=== PATIENT | female | born 1975 | race Caucasian/White ===

== ENCOUNTER → 2017-12-03 08:22 | Outpatient (CLI) | payer BC, SELFPAY ==
--- NOTE | 2017-12-03 08:25 | MM_ITS ---
MM Dig screening mamm BI w/CAD CAD Screening COMPARISON: Digital mammograms with CAD 11/05/2014 and 11/19/2015 INDICATION: There is no personal or family history of breast cancer TECHNIQUE: Standard CC and MLO images were obtained. R2 CAD reviewed. FINDINGS: Prominent diffuse heterogenic fibroglandular densities are seen throughout both breasts. There is no suspicious lesion and there are no suspicious microcalcifications. IMPRESSION: Moderate diffuse breast density with no suspicious lesion seen BI-RADS Category: 1 Negative RECOMMENDED FOLLOW-UP: 1YR - 1 YEAR FOLLOW-UP (A letter has been sent to the patient regarding results of the study.)
== END ==
PROVIDERS: PCP Family Medicine; Visit Provider Family Medicine
DX: Z12.31 Encounter for screening mammogram for malignant neoplasm of breast (principal)
CPT/HCPCS: 77067

== ENCOUNTER → 2019-12-18 14:37 | Outpatient (CLI) | payer BC, SELFPAY ==
--- NOTE | 2019-12-18 14:41 | MM_ITS ---
PROCEDURE: MM DIG MAMM BI DX W/CAD Digital Breast Tomosynthesis Included CLINICAL INDICATION: TALITA BREAST LUMP, there is no personal or family history of breast cancer. COMPARISON: MG DMDBAV DIG MAMM-DX TALITA W ADD VIEWS from 11/05/2014 MG DMSB DIG MAMM-SCREEN TALITA from 11/19/2015 TECHNIQUE: Standard CC and MLO images and 3D Tomosynthesis was obtained. R2 CAD reviewed. FINDINGS: Diffuse somewhat heterogenic fibroglandular densities are seen in the central portions of both breasts. There is asymmetric glandular elements upper-outer quadrant right breast just beneath the skin marker at the site of the palpable lump. A spot compression view was obtained in MLO projection. In addition ean images confirm an asymmetric density with slight irregularity of the borders. Spot compression of the central portion left breast was obtained as well in MLO projection. There has been asymmetric glandular elements upper-outer quadrant right breast on recent mammograms dating back through 11/05/2014 though there may have been a slight interval increase in size on today's exam compared with the previous studies. There has been no significant interval change in the glandular elements of the left breast when compared to previous studies. Ultrasound was performed the same date on both breasts. There are multiple benign-appearing cyst in each breast. There is a large dominant cyst upper outer quadrant right breast corresponding in size and location to the palpable lump. It has benign features with acoustic enhancement and no definite internal echoes. Cyst aspiration could be offered to the patient if it is causing significant painful symptoms. IMPRESSION: Heterogenic breast parenchyma bilaterally with slight change in asymmetric glandular elements right breast, ultrasound examination confirms multiple benign-appearing cysts in each breast which can be followed however as mention if the dominant cyst right breast is becoming symptomatic cyst aspiration could be performed. BI-RAD Category: 2 Benign Finding(s) FOLLOW-UP: 1YR 1 Year Follow-up (A letter has been sent to the patient regarding results of the study.) Dictated by: Dr. Jeremias Stallworth MD 12/23/2019 09:30 Dr. Jeremias Stallworth MD in [place] 12/23/2019 09:30
--- NOTE | 2019-12-18 14:42 | US_ITS ---
PROCEDURE: US BREAST LT COMPLETE CLINICAL INDICATION: TALITA BREAST LUMP COMPARISON: US US BREAST RT COMPLETE from 12/18/2019 FINDINGS: There are multiple small benign-appearing cystic lesions throughout the breast less numerous and overall smaller in size and seen in the right breast. There is no suspicious solid lesion. There are couple normal appearing nodes in the axilla. IMPRESSION: Multiple small benign-appearing cystic lesions as noted and no additional follow-up is indicated. Dictated by: Dr. Jeremias Stallworth MD 12/23/2019 09:42 Dr. Jeremias Stallworth MD in [place] 12/23/2019 09:42
--- NOTE | 2019-12-18 14:42 | US_ITS ---
PROCEDURE: US BREAST RT COMPLETE CLINICAL INDICATION: TALITA BREAST LUMP COMPARISON: US BL US BREAST-LT COMPLETE W/AXILLA from 11/05/2014 FINDINGS: Benign-appearing cystic lesions are seen throughout the breast of varying sizes. The largest lesion is the 10 o'clock position at the site of the palpable lump measuring 3.0 by 3.1 x 1.4 cm. There is fairly good acoustic enhancement and no definite internal echoes. There is no suspicious solid lesions seen. There are normal appearing nodes in the axilla. IMPRESSION: Multiple benign-appearing cysts and fibrocystic type breast parenchyma, if the largest cyst is becoming symptomatic cyst aspiration could be offered. Dictated by: Dr. Jeremias Stallworth MD 12/23/2019 09:41 Dr. Jeremias Stallworth MD in [place] 12/23/2019 09:41
== END ==
PROVIDERS: PCP Family Medicine; Visit Provider Physician Assistant
DX: N63.10 Unspecified lump in the right breast, unspecified quadrant (principal); N63.20 Unspecified lump in the left breast, unspecified quadrant
CPT/HCPCS: 76641; 77062; 77066; G0279

== ENCOUNTER → 2021-01-14 09:38 | Outpatient (CLI) | payer BC, SELFPAY ==
--- NOTE | 2021-01-14 09:41 | US_ITS ---
PROCEDURE: US ABDOMEN LIMITED CLINICAL INDICATION: RUQ PAIN COMPARISON: No exams were available for comparison FINDINGS: PANCREAS: Unremarkable. No obvious mass or abnormal fluid collection. No ductal dilatation LIVER: No focal liver lesions demonstrated. Homogeneous echogenicity. No intrahepatic biliary ductal dilatation evident. There is appropriate direction of blood flow within a non dilated portal vein RIGHT KIDNEY: Unremarkable. Normal size and echogenicity. No hydronephrosis GALLBLADDER: No gallstones, gallbladder wall thickening, pericholecystic fluid, or biliary dilatation. IMPRESSION: Unremarkable limited abdominal ultrasound as detailed above disc Dictated by: Placido Oliver MD 01/14/2021 13:40 Placido Oliver MD in [place] 01/14/2021 13:40
== END ==
PROVIDERS: PCP Family Medicine; Visit Provider Physician Assistant
DX: R10.11 Right upper quadrant pain (principal)
CPT/HCPCS: 76705

== ENCOUNTER → 2021-01-28 08:28 | Outpatient (CLI) | payer BC, SELFPAY ==
--- NOTE | 2021-01-28 08:30 | MM_ITS ---
PROCEDURE INFORMATION: Exam: MG Bilateral Screening 3D Mammography Exam date and time: 01/28/2021 8:30 AM Age: 45 years old Clinical indication: screening mammogram TECHNIQUE: Imaging protocol: Bilateral screening tomosynthesis and 2D mammography including computer-aided detection (CAD) when performed. COMPARISON: 1. MG MM DIG MAMM BI DX W/CAD 12/18/2019 2:49 PM 2. MG SCBI MM Dig screening mamm BI w/CAD 12/03/2017 8:47 AM 3. MG DMSB DIG MAMM-SCREEN TALITA 11/19/2015 1:13 PM 4. MG DMDBAV DIG MAMM-DX TALITA W ADD VIEWS 11/05/2014 1:51 PM FINDINGS: MAMMOGRAPHY: Breast composition: The breast tissue is heterogeneously dense, which may obscure small masses. Mass: Mass within the upper outer posterior right breast measuring 8 mm should be further assessed with spot views in CC/MLO projection. Ultrasound should also be performed. Architectural distortion: No new or suspicious architectural distortion. Calcifications: No new or suspicious calcifications are present Asymmetric density: No new or suspicious asymmetric density is present Skin thickening: None. Axillary adenopathy: None. IMPRESSION: Mass within the upper outer posterior right breast measuring 8 mm should be further assessed with spot views in CC/MLO projection. Ultrasound should also be performed. ASSESSMENT: BI-RADS category 0: Incomplete-need additional imaging evaluation
== END ==
PROVIDERS: PCP Family Medicine; Visit Provider Physician Assistant
DX: Z12.31 Encounter for screening mammogram for malignant neoplasm of breast (principal)
CPT/HCPCS: 77063; 77067

== ENCOUNTER → 2021-02-09 07:51 | Outpatient (CLI) | payer BC, SELFPAY ==
--- NOTE | 2021-02-09 07:56 | MM_ITS ---
PROCEDURE: MM DIG MAMM DX UNILAT RT CAD Digital Breast Tomosynthesis Included CLINICAL INDICATION: ABN MAMM Right breast nodule COMPARISON: MG SCBI MM Dig screening mamm BI w/CAD from 12/03/2017 MG MM DIG MAMM BI DX W/CAD from 12/18/2019 US US BREAST RT COMPLETE from 12/18/2019 MG MM DIG SCREENING MAMM BI W/CAD from 01/28/2021 US US BREAST RT COMPLETE from 02/09/2021 TECHNIQUE: Standard CC and MLO images and 3D Tomosynthesis was obtained. R2 CAD reviewed. FINDINGS: The breasts are heterogeneously dense which may obscure small masses. There is a persistent nodular opacity in the upper outer aspect of the right breast on the spot compression views measuring approximately 7 mm. This is somewhat obscured inferiorly overlying breast tissue. Right breast ultrasound: There are numerous cysts at air for o'clock position of the breast imaged. The largest cyst is in the upper outer aspect of the right breast at 10 o'clock measuring 13 x 9 mm. Which corresponds to a 13 mm nodule in the upper outer breast. Additional cysts are present in the upper outer quadrant including a an 8 mm cyst at 8 o'clock near the nipple and an 8 x 5 mm cyst in the 10 o'clock pre region in the mid breast which may correspond to the additional nodular density. Other smaller cysts are present in this region as well. No suspicious nodules are evident by ultrasound. IMPRESSION: Multiple right breast cysts at least 1 of which likely corresponds to the new mammographic no suspicious nodules. Abnormality.. BI-RAD Category: 3 Probably Benign Finding Short Term Follow-Up FOLLOW-UP: 6M 6 Month Follow-up (A letter has been sent to the patient regarding results of the study.) Dictated by: Placido Oliver MD 02/15/2021 14:26 Placido Oliver MD in [place] 02/15/2021 14:26
== END ==
PROVIDERS: PCP Family Medicine; Visit Provider Physician Assistant
DX: R92.8 Other abnormal and inconclusive findings on diagnostic imaging of breast (principal)
CPT/HCPCS: 76641; 77061; 77065; G0279

== ENCOUNTER → 2021-03-08 09:13 | Outpatient (CLI) | payer BC, SELFPAY | PROVIDERS: PCP Family Medicine; Visit Provider Nurse Practitioner | DX: Z20.822 Contact with and (suspected) exposure to COVID-19 (principal); U07.1 COVID-19 | CPT/HCPCS: C9803; U0003; U0005 ==

== ENCOUNTER 2021-03-11 07:50 | Outpatient (CLI) | payer BC, SELFPAY ==
[2021-03-11 08:40] VITALS: BP 111/61; PULSE 85; RESP 18; TEMP 36.8; O2SAT 96
[2021-03-11 09:00] VITALS: BP 114/68; PULSE 79; RESP 16; O2SAT 95
[2021-03-11 09:30] VITALS: BP 109/62; PULSE 79; RESP 16; O2SAT 97
[2021-03-11 10:36] VITALS: BP 92/45; PULSE 72; O2SAT 97
[2021-03-11 10:41] VITALS: BP 102/70; PULSE 78; RESP 18; TEMP 36.8; O2SAT 97
== END 2021-03-11 10:44 | disposition home or self-care (01) ==
LOC: INF 07:51
PROVIDERS: PCP Family Medicine; Visit Provider Family Medicine
DX: U07.1 COVID-19 (principal); Z23 Encounter for immunization
CPT/HCPCS: 96365

== ENCOUNTER → 2022-09-19 07:56 | Outpatient (CLI) | payer BC, SELFPAY ==
--- NOTE | 2022-09-19 08:01 | MM_ITS ---
PROCEDURE INFORMATION: Exam: MG Bilateral Screening 3D Mammography Exam date and time: 09/19/2022 7:52 AM Age: 46 years old Clinical indication: Screening examination TECHNIQUE: Imaging protocol: Bilateral Screening tomosynthesis and 2D mammography including computer-aided detection (CAD) when performed. COMPARISON: 1. MG MM DIG MAMM DX UNILAT RT CAD 02/09/2021 8:03 AM 2. MG MM DIG SCREENING MAMM BI W/CAD 01/28/2021 8:43 AM FINDINGS: MAMMOGRAPHY: Breast composition: The breasts are heterogeneously dense, which may obscure small masses. Mass: No suspicious masses. Architectural distortion: No suspicious distortion. Calcifications: No suspicious calcifications. Asymmetric density: None. Skin thickening: None. Axillary adenopathy: None. IMPRESSION: No mammographic evidence of malignancy. Annual screening is recommended unless otherwise clinically indicated. ASSESSMENT: BI-RADS Category 1: Negative
== END ==
PROVIDERS: PCP Family Medicine; Visit Provider Physician Assistant
DX: Z12.31 Encounter for screening mammogram for malignant neoplasm of breast (principal)
CPT/HCPCS: 77063; 77067

== ENCOUNTER → 2023-01-26 16:42 | Outpatient (CLI) | payer BC, SELFPAY | LOC: RT 16:43 | PROVIDERS: PCP Physician Assistant; Visit Provider Physician Assistant | DX: R00.2 Palpitations (principal) | CPT/HCPCS: 93225 ==

== ENCOUNTER 2023-09-28 15:02 | Emergency (ER) | payer BC, SELFPAY ==
[2023-09-28 15:23] LABS: Color,Urine Orange (Yellow)
[2023-09-28 15:24] LABS: Apearance,Urine Clear (Clear); Bilirubin,Urine Negative (Negative); Blood, Urine Trace (Negative); Glucose,Urine (UA) 100 (Negative); Ketones,Urine Negative (Negative); PH,Urine 5.5 (5.0-8.5); Protein,Urine Trace (Negative); Specific Gravity, Urine 1.015 (1.005-1.030); UTC Leukocyte Esterase,Urine Trace (Negative); UTC Nitrate,Urine Positive (Negative); Urobilinogen,Urine 1 EU/dl (0.2)
[2023-09-28 15:25] VITALS: BP 117/71; PULSE 70; RESP 16; TEMP 36.7; O2SAT 97; BMI 29.9
--- NOTE | 2023-09-28 15:36 | EXP.UTC ---
Discharge Plan Disposition Patient Disposition: Home, Self-Care Condition: Good Prescriptions Prescriptions: New phenazopyridine [Pyridium] 200 mg tablet 200 mg PO Q8H 2 Days Qty: 6 0RF ondansetron 4 mg Tablet,Disintegrating 4 mg PO Q8H PRN (Reason: Nausea) Qty: 9 0RF nitrofurantoin monohyd/m-cryst [Macrobid] 100 mg Capsule 100 mg PO BID Qty: 10 0RF Rx Instructions: must administer with a meal/food Referrals Follow up/Referrals: Emilee Austin PA [Primary Care Provider] - See instructions Activity Restrictions/Add. Instructions Additional Instructions/Restrictions: Drink plenty of fluids. Take tylenol or ibuprofen for pain or fever. Take the medications as directed. Follow up with your regular doctor. GO TO THE ER FOR ANY WORSENING SYMPTOMS The pyridium will make your urine turn orange, this is an expected side effect. It will stain your clothes if it comes into contact with them. We will culture the urine. That will tell what bacteria is causing your infection and which antibiotics will treat it best. Sometimes the first antibiotic we prescribe turns out to not work against different bacteria. So, make sure you follow up within 3 days if you are not getting better. Clinical Impressions Clinical Impression: UTI (urinary tract infection) Instructions Patient Instructions: Urinary Tract Infection, Urine Culture, DI for Urinary Tract Infection (UTI), Phenazopyridine Discharge ED Provider: Hossein Paniagua [facility] [place] General Stated complaint: Cough,congestion,Pressure with urination Mode of Arrival: Ambulatory Source of Information: Patient Limitations: No Limitations Time Seen by Provider: 09/28/23 15:36 Description of Symptoms (Recalled from Triage Doc. by RN): Complaint of possible UTI and also having URI symptoms for 2-3 days. HEENT Symptoms (Recalled from RN notes): Yes Resp Symptoms (Recalled from RN notes): No Skin Symptoms (Recalled from RN notes): No MS Symptoms (Recalled from RN notes): No Functional Status (Recalled from RN notes): wnl Related Data Previous Rx's Medication Instructions Recorded nitrofurantoin 100 mg PO BID #10 caps 09/28/23 monohydrate/macrocrystals 100 mg capsule (Macrobid) ondansetron 4 mg disintegrating 4 mg PO Q8H PRN Nausea #9 tabs 09/28/23 tablet phenazopyridine 200 mg tablet 200 mg PO Q8H 2 days #6 tabs 09/28/23 (Pyridium) Allergies Allergy/AdvReac Type Severity Reaction Status Date / Time No Known Allergies Allergy Verified 03/11/21 10:30 Worker's Comp Is this a Worker's Comp case?: No [facility] Disclaimer: The information contained in this section may have been updated after the patient was seen, as this information can be updated by other users. Social History Smoking Status: Never smoker alcohol intake: never current occupational status: employed Travel in the last 8 weeks: None ROS Obtained: Yes All systems reviewed & no additional complaints except as documented Constitutional Constitutional: Reports system reviewed and no additional complaints, except as documented, Denies chills and Denies fever(s) Eyes Eyes: Denies eye discharge ENT Ears, Nose, Mouth, and Throat: Denies dysphagia, Denies sore throat and Denies throat swelling Cardiovascular Cardiovascular: Denies chest pain and Denies dyspnea Respiratory Respiratory: Denies chest congestion, Denies cough and Denies dyspnea Gastrointestinal Gastrointestingal: Denies abdominal pain, constipation, diarrhea, dysphagia, nausea or vomiting Genitourinary Female Genitourinary: Reports as per HPI, Reports dysuria, Reports urinary frequency, Denies urinary incontinence, Reports urinary hesitancy and Reports urinary urgency Musculoskeletal Musculoskeletal: Denies arthralgias and Reports back pain Integumentary/Breasts Skin/Breast: Denies rash Neurologic Neurologic: Denies paresthesias Allergic/Immunologic Allergic/Immunologic: Denies throat swelling Physical Exam General General appearance: alert and in no apparent distress Head Head exam: atraumatic and normocephalic Eye Eye exam: Present normal appearance, PERRL and EOMI ENT ENT exam: Present normal exam, mucous membranes moist, TM's normal bilaterally and normal external ear exam Neck Neck exam: Present normal inspection, full ROM and trachea midline; Absent tenderness, meningismus or lymphadenopathy Chest Chest inspection: Present normal inspection and symmetric chest wall rise; Absent tenderness Respiratory Respiratory exam: Present normal lung sounds bilaterally; Absent respiratory distress, wheezes or stridor Cardiovascular Cardiovascular exam: Present regular rate, normal rhythm and normal heart sounds Abdominal Exam Abdominal exam: Present soft and normal bowel sounds; Absent distention, tenderness, guarding, rebound, rigidity, incision, psoas sign, obturator sign, heel tap sign, Solares's sign, Rovsing's sign or tenderness at McBurney's Point Extremities Exam Extremities exam: Present normal inspection, full ROM and normal capillary refill; Absent tenderness, edema, joint swelling, calf tenderness or cyanosis Back Exam Back exam: Present normal inspection and full ROM; Absent tenderness, CVA tenderness (R) or CVA tenderness (L) Neurological Exam Neurological exam: Present alert, oriented X3 and normal gait Psychiatric Psychiatric exam: Present normal affect and normal mood Skin Skin exam: Present warm, dry, intact and normal color Lymphatic Lymphatic Findings: no adenopathy Medical Decision Making Medical Records Medical records reviewed: No I reviewed the patient's medical records. [place] Inquiry Pt receiving controlled substance: No Vital Signs: 09/28/23 15:25 Temperature 98.0 F Temperature Source Oral Pulse Rate [Radial] 70 Respiratory Rate 16 Blood Pressure [Right Arm] 117/71 Blood Pressure Mean [Right Arm] 86 Blood Pressure Source [Right Arm] Automatic Cuff Blood Pressure Position [Right Arm] Sitting 02 Sat by Pulse Oximetry 97 Oxygen Delivery Method Room Air Lab Data Lab results reviewed: Yes I reviewed the patient's lab results. Lab Results 09/28/23 15:19: Urine Color [place], Urine Appearance Clear, Urine pH 5.5, Ur Specific [place] 1.015, Urine Protein Trace, Urine Glucose (UA) 100, Urine Ketones Negative, Urine Blood Trace, Urine Nitrate Positive A, Urine Bilirubin Negative, Urine Urobilinogen 1, Ur Leukocyte Esterase Trace
[2023-09-28] MEDS: cefTRIAXone 1GM VIAL 1 GM IM (16:04)
[2023-09-28] MEDS: LIDOCAINE 1% 5ML PF VIAL IM (16:08)
[2023-09-28 16:21] VITALS: BP 117/71; PULSE 70; RESP 16; TEMP 36.7; O2SAT 97
== END 2023-09-28 16:22 | disposition home or self-care (01) ==
PROVIDERS: Emergency Provider Nurse Practitioner Family; PCP Physician Assistant
DX: N39.0 Urinary tract infection, site not specified (principal); R05.9 Cough, unspecified; R09.81 Nasal congestion; R30.9 Painful micturition, unspecified
CPT/HCPCS: 81003; 96372; 99204; 99212; G0463; J0696

== ENCOUNTER 2024-07-10 07:52 | Outpatient (CLI) | payer OTHER, SELFPAY ==
--- NOTE | 2024-07-10 07:55 | MM_ITS ---
PROCEDURE INFORMATION: Exam: MG Bilateral Screening 3D Mammography Exam date and time: 07/10/2024 8:04 AM Age: 48 years old Clinical indication: Screening examination TECHNIQUE: Imaging protocol: Bilateral Screening tomosynthesis and 2D mammography including computer-aided detection (CAD) when performed. COMPARISON: 1. MG MM DIG SCREENING MAMM BI W/CAD 09/19/2022 7:52 AM 2. MG MM DIG MAMM DX UNILAT RT CAD 02/09/2021 8:03 AM 3. MG MM DIG SCREENING MAMM BI W/CAD 01/28/2021 8:43 AM FINDINGS: MAMMOGRAPHY: Breast composition: The breasts are heterogeneously dense, which may obscure small masses. Mass: No suspicious masses. Architectural distortion: None. Calcifications: No suspicious calcifications. Asymmetric density: None. Skin thickening: None. Axillary adenopathy: None. IMPRESSION: No mammographic evidence of malignancy. Annual screening is recommended unless otherwise clinically indicated. ASSESSMENT: BI-RADS Category 1: Negative.
== END 2024-07-10 23:59 | disposition home or self-care (01) ==
LOC: RAD 07:53
PROVIDERS: PCP Physician Assistant; Visit Provider Physician Assistant
DX: Z12.31 Encounter for screening mammogram for malignant neoplasm of breast (principal)
CPT/HCPCS: 77063; 77067

== ENCOUNTER 2025-04-08 09:46 | Day surgery (SDC) | payer OTHER, SELFPAY ==
--- NOTE | 2025-03-31 12:32 | EXP.HP ---
History of Present Illness *Admission Date: 04/08/25 *History of present illness: Mrs. Vazquez is a 49-year-old female who is here for diagnostic EGD. The patient does report swallowing difficulty/dysphagia for over a year. This primarily occurs with solid foods such as meats and steak. She reports no regurgitation. The patient does not have any painful swallowing/odynophagia or globus sensation. The patient does have a long history of heartburn and reflux. Over the years, she has tried Prevacid and Nexium and Protonix. She also has used Tums and Rolaids. She is currently on omeprazole which helps but she will get some rare breakthrough heartburn and reflux. She did have an EGD in [address] Anant Cruz MD and had gastric ulcers at that time. The patient has never had a colonoscopy. The examination is deemed medically necessary for diagnostic EGD. The patient has been seen, interviewed and examined prior to the procedure by both myself and the anesthesia provider. [facility] Disclaimer: The information contained in this section may have been updated after the patient was seen, as this information can be updated by other users. Medical History Vaginal dryness, menopausal GERD (gastroesophageal reflux disease) Enlarged thyroid Surgical History H/O tubal ligation Family History Other No significant family history Social History (Updated 04/08/25 @ 10:44 by Elkin Almeida CRNA) Smoking Status: Never smoker alcohol intake: never substance use type: denies use current occupational status: employed Travel in the last 8 weeks?: None Have you lived/traveled outside US in past 30 days?: No Contact w/someone who lives/traveled outside US past 30 days?: No Exposure to someone with infectious disease in past 14 days?: No Do you have a fever (greater than 100.4 F or 38 C)?: No Have you tested positive for COVID-19?: No Exposed to someone with COVID-19 in past 14 days?: No Do you have a sore throat?: No Do you have a cough?: No Do you have any weakness?: No Are you experiencing any nausea/vomitting?: No Do you have any diarrhea?: No Are you experiencing any unusual bleeding?: No Do you have any muscle aches/pain?: No Do you have any abdominal pain?: No Are you experiencing loss of taste or smell?: No Review of Systems Review of Systems Review of systems (narrative): Negative *Cardiovascular Comments: Negative *Gastrointestinal Comments: Negative *Genitourinary Comments: Negative *Musculoskeletal Comments: Negative *Neurologic Comments: Negative Meds Home Medications and Allergies Home Medications ?Medication ?Instructions ?Recorded ?Confirmed ?Type norethindrone acetate 1 mg-ethinyl 1 tab PO DAILY 08/08/24 04/08/25 History estradiol 5 mcg tablet (Fyavolv) omeprazole 40 mg capsule,delayed 40 mg PO DAILY 08/08/24 04/08/25 History release thyroid (pork) 30 mg tablet (ASTRONOMY DEPARTMENT CHAIR 30 mg PO DAILY 08/08/24 04/08/25 History Thyroid) New Prescriptions to Start Prescriptions: Allergies Allergy/AdvReac Type Severity Reaction Status Date / Time No Known Allergies Allergy Verified 04/08/25 10:24 Exam *Routine HEENT Exam Head: Present normocephalic Eye: Present EOMI and PERRL ENT: Present mucous membranes moist *Routine Neck Exam Neck: Present supple *Routine Respiratory Exam Respiratory: Present CTA bilaterally *Routine Cardiovascular Exam Cardiovascular: Present RRR *Routine Abdominal Exam Abdominal: Present soft and normoactive bowel sounds; Absent tenderness *Routine Rectal Exam Rectal:: deferred *Routine Genitalia Exam Genitalia:: deferred *Routine Extremities Exam Extremities: Absent cyanosis, clubbing or edema *Routine Skin Exam Skin: Present warm; Absent rash *Routine Neurological Exam Neurological: Present alert and oriented X3 Assessment and Plan *Assessment and plan (1) Dysphagia: Status: Acute Category: Medical Code(s): R13.10 - Dysphagia, unspecified (2) Choking: Status: Acute Category: Medical Code(s): T17.308A - Unspecified foreign body in larynx causing other injury, initial encounter (3) Heartburn: Status: Acute Category: Medical Code(s): R12 - Heartburn (4) GERD (gastroesophageal reflux disease): Status: Acute Category: Medical Code(s): K21.9 - Gastro-esophageal reflux disease without esophagitis Plan A/P: 1. Dysphagia/choking with long history of chronic GERD/heartburn is the preprocedural diagnosis. The patient will be anesthetized/sedated using MAC sedation. The patient has been seen and examined. Cardiac and lung assessment prior to the examination is stable. Proceed with planned diagnostic EGD.
[2025-04-07 13:13] VITALS: BMI 28.3
--- NOTE | 2025-04-08 06:24 | [facility]H.PROCNOTE ---
[facility] Procedure Note Date: 04/08/25 Time: 10:59 Procedure Note:: Upper Endoscopy Procedure Report: Esophagogastroduodenoscopy with cold biopsies and TTS balloon dilation Endoscopost: Parrish Givens II, MD Referring Physician: Ericka Austin PA-C Date of Procedure: April 08, 2025 Equipment: Olympus GIF-1100 standard upper endoscope Sedation: MAC sedation Indications: Mrs. Vazquez is a 49-year-old female who is here for diagnostic EGD. The patient does report swallowing difficulty/dysphagia for over a year. This primarily occurs with solid foods such as meats and steak. She reports no regurgitation. The patient does not have any painful swallowing/odynophagia or globus sensation. The patient does have a long history of heartburn and reflux. Over the years, she has tried Prevacid and Nexium and Protonix. She also has used Tums and Rolaids. She is currently on omeprazole which helps but she will get some rare breakthrough heartburn and reflux. She did have an EGD in [address] Anant Cruz MD and had gastric ulcers at that time. The patient has never had a colonoscopy. The examination is deemed medically necessary for diagnostic EGD. Procedure: Prior to the procedure, a history and physical exam was performed, and patient's medications and allergies were reviewed. The risks, benefits and alternatives of the sedation and procedure were discussed with the patient. All questions were answered and informed consent was obtained. The patient was brought to the procedure room. Patient identification and proposed procedure were verified by the physician and the nurse. The patient was placed in a left lateral decubitus position and the scope was passed under direct vision. Throughout the procedure, the patient's blood pressure, pulse, and oxygen saturations were monitored continuously. The upper GI endoscopy was accomplished without difficulty. The patient tolerated the procedure well. Findings: The scope was passed directly into the upper esophagus and advanced to the third portion of the duodenum. The post bulbar duodenum and duodenal bulb were normal with normal mucosa and conniventes. 2 cold biopsies were taken from the second portion of the duodenum for the disaccharidase assay. The scope was withdrawn through a normal duodenal bulb and pylorus into the stomach. There was very mild linear reactive gastropathy of the antrum. The body and fundus of the stomach were grossly normal. There were a few gastric fundic gland polyps 1 of which was removed via cold biopsy. Upon retroflexion there was a very small sliding 1 to 2 cm hiatal hernia. Cold biopsies were taken from the antrum. The scope was then withdrawn into the esophagus. There was no evidence of reflux esophagitis or Ivey's. There was no Schatzki's ring, webs or strictures. There was very minimal corrugation and cold biopsies were obtained from the distal and the proximal esophagus separately to rule out eosinophilic esophagitis. There were tertiary contractions and evidence of mild esophageal dysmotility. The entire esophagus was dilated to 60 German/20 mm with a TTS hydrostatic balloon. There was minimal resistance. The remainder of the esophageal mucosa was normal. Impression: 1. Nonerosive GERD with mild esophageal dysmotility and very small sliding 1 to 2 cm hiatal hernia 2. Mild linear reactive gastropathy of antrum 3. Gastric fundic gland polyps Plan: I will follow-up the biopsies and disaccharidase assay. The patient does have functional GERD resulting in the esophageal dysmotility. This is causing some swallowing difficulty. We will discuss treatment options.
[2025-04-08 10:26] VITALS: BP 121/66; PULSE 59; RESP 16; TEMP 36.6; O2SAT 97; BMI 28.3
[2025-04-08] MEDS: LACTATED RINGERS 1000ML 1,000 ML 50 ML IV (10:36)
--- NOTE | 2025-04-08 10:43 | P.PNANES_ITS ---
[facility] Disclaimer: The information contained in this section may have been updated after the patient was seen, as this information can be updated by other users. Medical History Vaginal dryness, menopausal GERD (gastroesophageal reflux disease) Enlarged thyroid Surgical History H/O tubal ligation Family History Other No significant family history Social History Smoking Status: Never smoker alcohol intake: never substance use type: denies use current occupational status: employed Travel in the last 8 weeks?: None [facility] Anesthesia Checklist Patient Identification Patient Identification: Arm Band and Verbal (Name & ) Structural Data Admitted From: Home Planned Operative Procedure/s: EGD Consent for Planned Operative Procedure(s) Verified: Yes Verified Documents: Surgical Consent NPO Status Verified Time NPO: 00:00 Additional verifications Patient : No (No menstrual cycle for 3 years) Anesthesia Reactions: No Airway Assessment Mallampati Score:: Class II C-Spine Mobility Assessed: Yes TMJ Mobility Assessed: Yes Dentition: Good Dentition Neurological Assessment Level of Consciousness: Awake, Alert and Appropriate Hx Seizures: No Numbness or tingling in extremities: No Anesthesia Plan Anesthesia Risk discussed: Yes Anesthesia Plan: Verified ASA Class: II Anesthesia Type: MAC
[2025-04-08 11:02] VITALS: BP 111/65; PULSE 72; RESP 18; TEMP 36.1; O2SAT 95
[2025-04-08 11:12] VITALS: BP 107/64; PULSE 53; RESP 18; O2SAT 99
[2025-04-08 11:22] VITALS: BP 119/70; PULSE 55; RESP 18; O2SAT 99
[2025-04-08 11:32] VITALS: BP 111/70; PULSE 58; RESP 16; O2SAT 98
[2025-04-08 11:42] VITALS: BP 111/67; PULSE 55; RESP 16; O2SAT 99
[2025-04-10 17:35] LABS: Interpretation Notes (.); Lactase 30.11 (>/= 14.0); Maltase 158.4 (>/= 110.0); Palatinase 11.78 (>/= 8.5); Reference Notes (.); Sucrase 30.11 (>/= 25.0)
== END 2025-04-08 11:42 | disposition home or self-care (01) ==
PROVIDERS: PCP Physician Assistant; Visit Provider Internal Medicine Gastroenterology
PROC: 0DJ08ZZ Inspection of Upper Intestinal Tract, Via Natural or Artificial Opening Endoscopic (ICD-10-PCS; CPT 43239; principal; 2025-04-08 11:30)
DX: K21.9 Gastro-esophageal reflux disease without esophagitis (principal); K22.4 Dyskinesia of esophagus; K31.7 Polyp of stomach and duodenum; K31.9 Disease of stomach and duodenum, unspecified; K44.9 Diaphragmatic hernia without obstruction or gangrene; R12 Heartburn; Z79.899 Other long term (current) drug therapy
CPT/HCPCS: 43239; 43249; 82657; C1726; J2003; J2704; J7120